=== PATIENT | male | born 1955 | race Caucasian/White ===

== ENCOUNTER 2017-04-22 05:00 | Emergency (ER) | payer OTHER ==
[~2017-04-22 05:00] MED LIST: AMOX TR-K CLV PO; AMOXICILLIN500 M1 PO; ATIVAN1 MG PO; AUG500 PO; BACTRIM DS1 TAB PO; CLARITHROMYCIN500 M1 PO; CLINDAMYCIN HC300 MG PO; GABAPENTIN100 M2 PO; GLUCOPHAGE1000 MG PO; KEFLEX250 MG PO; KEFLEX500 MG PO; LAC PO; LANTUS SOLOS100 U/M1 SC; LEVAQUIN500 MG PO; NEU300 PO; NORCO1 TA2 PO; PRILOSEC20 MG PO; SANOINT TP; VOLTAREN75 MG PO; ZESTRIL2.5 MG PO; ZOCOR20 MG PO; [UNRECOGNIZED DRUG - OTHER] PO
[2017-04-22 08:08] VITALS: BP 127/73
== END 2017-04-22 08:08 | disposition home or self-care (01) ==
LOC: ED 05:00
DX: M75.42 Impingement syndrome of left shoulder (principal); K21.9 Gastro-esophageal reflux disease without esophagitis; E78.00 Pure hypercholesterolemia, unspecified; E11.40 Type 2 diabetes mellitus with diabetic neuropathy, unspecified; Z90.49 Acquired absence of other specified parts of digestive tract; Z89.412 Acquired absence of left great toe; Z89.411 Acquired absence of right great toe
CPT/HCPCS: J1170; J1885; J2930

== ENCOUNTER 2017-04-23 23:24 | Emergency (ER) | payer OTHER ==
[2017-04-24 00:22] LABS: CALCIUM 9.5 mg/dL (8.5-10.1); CARBON DIOXIDE 30.6 mmol/L (21-32); CHLORIDE SERUM 100 mmol/L (98-107); CREATININE SERUM 0.9 mg/dL (0.7-1.3); GFR1 > 60 mL/min; GLUCOSE SERUM 210 mg/dL (74-106); POTASSIUM SERUM 3.4 mmol/L (3.5-5.1); SODIUM SERUM 137 mmol/L (136-145)
[2017-04-24 00:25] LABS: PHOSPHOROUS 4.8 mg/dL (2.5-4.9)
[2017-04-24 00:35] LABS: PLATELET COUNT 155 x10^3mcL (130-400); RED CELL DISTRIBUTION WIDTH 13.7 % (11.5-14.5)
[2017-04-24 00:46] LABS: CK-MB 0.7 ng/mL (0-3.6)
[2017-04-24 00:57] VITALS: BP 137/107
== END 2017-04-24 00:57 | disposition home or self-care (01) ==
LOC: ED 23:24
PROVIDERS: Emergency Medicine
DX: M54.12 Radiculopathy, cervical region (principal); M79.602 Pain in left arm
CPT/HCPCS: 83880; J1885